=== PATIENT | male | born 1985 | race Caucasian/White ===

== ENCOUNTER 2017-01-04 01:52 | Emergency (ER) | payer OTHER ==
--- NOTE | 2017-01-04 01:58 | ED PSYCHIATRIC COMPLAINT ---
History of Present Illness General Chief Complaint: ETOH/Drug Related Complaint Stated Complaint: BIBA, ETOH Source: patient Exam Limitations: no limitations Vital Signs & Intake/Output Vital Signs & Intake/Output Vital Signs Date Time Temp Pulse Resp B/P Pulse O2 O2 Flow FiO2 Ox Delivery Rate 01/04 0407 98.0 77 18 125/55 96 Room Air 01/04 0206 97.5 75 18 122/60 96 Reconcile Medications Ondansetron (Zofran Odt) 4 MG TAB.RAPDIS 1 TAB PO Q6 PRN NAUSEA Triage Nurses Notes Reviewed? yes Onset: Abrupt Duration: hour(s): (1) Timing: single episode today Severity: severe Associated Symptoms: VOMITING X 1 HPI: This is a 31-year-old male who arrives by EMS from the [facility] for chief complaint of intoxication. According to the significant other he was too intoxicated to walk into the car. Patient vomited prior to arrival. He admits to drinking a lot of vodka. Patient is very lethargic but arousable. He is able to make a thumbs up sign when asked certain questions. He denies any other drug use. Past History Travel History Traveled to [place] past 21 day No Medical History Any Pertinent Medical History? see below for history Cardiovascular: hypertension, OBESITY Surgical History Surgical History: non-contributory Family History Hx Contributory? No Review of Systems Review of Systems Constitutional: Denies: chills, fever. EENTM: Reports: no symptoms. Respiratory: Denies: short of breath. Cardiovascular: Denies: chest pain. GI: Reports: nausea. Denies: abdominal pain. Genitourinary: Reports: no symptoms. Musculoskeletal: Reports: no symptoms. Skin: Reports: no symptoms. Neurological/Psychological: Reports: see HPI (AMS). Hematologic/Endocrine: Denies: bleeding. Immunologic/Allergic: Reports: no symptoms. All Other Systems: Reviewed and Negative Physical Exam Physical Exam General Appearance: well developed/nourished, lethargic, obese Head: atraumatic Eyes: Bilateral: PERRL, EOMI. Ears, Nose, Throat: normal pharynx, normal ENT inspection, hearing grossly normal Neck: normal inspection, supple Respiratory: normal breath sounds Cardiovascular: regular rate/rhythm Gastrointestinal: soft, non-tender Extremities: normal range of motion Neurological/Psychiatric: LETHARGIC, OBTUNDED Appearance/Memory/Insight: disheveled, impaired insight Behavoir/Eye Contact/Speech: ONLY MAKING HAND MOTIONS Thoughts/Hallucinations: no apparent hallucination Skin: intact, normal color, warm/dry SAD PERSONS Done? unobtained due to conditi Progress Differential Diagnosis: ALCOHOL INTOXICATION Plan of Care: Orders Procedure Date/time Status ETHANOL 01/04 157 Complete COMPREHENSIVE METABOLIC PANEL 01/04 157 Complete CBC WITHOUT DIFFERENTIAL 01/04 157 Complete Laboratory Tests 01/04/17 0215: Anion Gap 14, Estimated GFR > 60, BUN/Creatinine Ratio 13.3, Glucose 108 H, Calcium 8.8, Total Bilirubin 0.5, AST 29, ALT 43, Alkaline Phosphatase 53, Total Protein 7.0, Albumin 4.3, Globulin 2.7, Albumin/Globulin Ratio 1.6, CBC w Diff NO MAN DIFF REQ, RBC 5.21, MCV 88.2, MCH 29.9, RDW 13.1, MPV 9.3, Gran % 73.3, Lymphocytes % 21.8, Monocytes % 3.6, Eosinophils % 1.0, Basophils % 0.3, Absolute Granulocytes 7.6 H, Absolute Lymphocytes 2.3, Absolute Monocytes 0.4, Absolute Eosinophils 0.1, Absolute Basophils 0, PUBS MCHC 33.9, Serum Alcohol 217.0 LABS, FLUIDS, ZOFRAN IV. 5:42 AM Patient now ambulatory and awake. States he feels much better. Significant other here today, this time. (JEROD BANKS,PATTY) Departure Departure Time of Disposition: 537 Disposition: HOME OR SELF CARE Condition: Stable Clinical Impression Primary Impression: Alcohol intoxication Additional Instructions: Drink plenty of fluids. Take Zofran as needed for nausea. Follow-up with her doctor in the office. Departure Forms: Customer Survey General Discharge Information Prescriptions: Current Visit Scripts Ondansetron (Zofran Odt) 1 TAB PO Q6 PRN NAUSEA #10 TAB
[2017-01-04 02:22] LABS: ABSOLUTE BASOPHIL COUNT 0 /CUMM (0.0-0.2); ABSOLUTE EOSINOPHIL COUNT 0.1 /CUMM (0.0-0.7); ABSOLUTE GRANULOCYTE CT 7.6 /CUMM (1.4-6.5); ABSOLUTE LYMPH COUNT 2.3 /CUMM (1.2-3.4); ABSOLUTE MONOCYTE COUNT 0.4 /CUMM (0.10-0.60); BASOPHIL % 0.3 % (0.0-2.0); GRANULOCYTE % 73.3 % (42.2-75.2); MEAN CORPUSCULAR HGB 29.9 PG (27.0-31.0); MEAN CORPUSCULAR HGB CONC 33.9 G/DL (33.0-37.0); MEAN CORPUSCULAR VOLUME 88.2 FL (80.0-94.0); MEAN PLATELET VOLUME 9.3 FL (7.4-10.4); PLATELET COUNT 175 /CUMM (130-400); RBC DISTRIBUTION WIDTH 13.1 % (11.5-14.5); RED BLOOD CELL CT 5.21 /CUMM (4.70-6.10); WHITE BLOOD CELL COUNT 10.4 /CUMM (4.8-10.8)
[2017-01-04] MEDS ORDERED: ZOFRAN ODT4 M1 PO (05:39)
[2017-01-04 05:52] VITALS: BP 128/74
== END 2017-01-04 05:54 ==
LOC: ERH 01:52
PROVIDERS: Emergency Medicine
DX: F10.129 Alcohol abuse with intoxication, unspecified (principal)
CPT/HCPCS: 96374; G0480; J2405